=== PATIENT | male | born 1950 | race Caucasian/White ===

== ENCOUNTER 2017-08-06 00:43 | Inpatient (IN) | payer OTHER, MEDICARE ==
[~2017-08-06] VITALS: Ht 182.9 cm; Wt 70.7 kg
[~2017-08-06 00:43] MED LIST: CEPH500C5 PO; ESCI10TA PO
[2017-08-06] MEDS ORDERED: levoFLOXACIN-Levaquin 750MG/D5 150 ML IV ONE (01:40)
[2017-08-06] MEDS ORDERED: vancomycin/NS 1 GM ADD-VANTAGE 250 ML IV ONE (01:40)
[2017-08-06] MEDS ORDERED: normal saline 1000ML IV soln IV ONE (01:40)
[2017-08-06 02:31] LABS: BASOPHILS % (AUTO) 0.1 % (0-1); EOSINOPHILS # (AUTO) 0.2 X10'3 (0-0.9); HEMATOCRIT 33.6 % (42.0-52.0); HEMOGLOBIN 11.2 g/dl (14.0-17.9); LYMPHOCYTES # (AUTO) 0.7 X10'3 (1.1-4.8); LYMPHOCYTES % (AUTO) 6.6 % (21-51); MEAN CORPUSCULAR HEMOGLOBIN 32.6 PG (27.0-31.0); MEAN CORPUSCULAR HGB CONC 33.2 % (33.0-36.5); MEAN CORPUSCULAR VOLUME 98.2 FL (78-98); MEAN PLATELET VOLUME 9.2 FL (7.4-10.4); MONOCYTES # (AUTO) 0.7 X10'3 (0-0.9); MONOCYTES % (AUTO) 6.3 % (2-12); NEUTROPHILS # (AUTO) 8.9 X10'3 (1.8-7.7); PLATELET COUNT 136 X10'3 (140-440); RED BLOOD COUNT 3.42 X10'6 (4.70-6.10); RED CELL DISTRIBUTION WIDTH 16.9 % (11.5-14.5); WHITE BLOOD COUNT 10.4 X10'3 (4.5-11.0)
[2017-08-06 02:41] LABS: INR 1.1 INR; PARTIAL THROMBOPLASTIN TIME 26 SECONDS (22-32); PROTHROMBIN TIME 11.1 SECONDS (9.0-12.0)
[2017-08-06 02:46] LABS: ALANINE AMINOTRANSFERASE 13 U/L (12-78); ALBUMIN 2.8 G/DL (3.4-5.0); ALBUMIN/GLOBULIN RATIO 0.6 (1.1-1.5); ALKALINE PHOSPHATASE 87 IU/L (46-116); ANION GAP 8 (8-16); ASPARTATE AMINO TRANSFERASE 8 U/L (10-37); BILIRUBIN,TOTAL 0.7 MG/DL (0.1-1.0); BLOOD UREA NITROGEN 24 MG/DL (7-18); BUN/CREATININE RATIO 21.8 (5.4-32.0); CALCIUM 9.3 MG/DL (8.5-10.1); CHLORIDE 107 MMOL/L (99-107); GLUCOSE 106 MG/DL (70-104); POTASSIUM 4.3 MMOL/L (3.5-5.1); SODIUM 143 MMOL/L (135-145); TOTAL CARBON DIOXIDE 27.6 MMOL/L (24-32); TOTAL PROTEIN 7.2 G/DL (6.4-8.2); eGFR 67 ML/MIN
[2017-08-06 02:54] LABS: MAGNESIUM 2.1 MG/DL (1.5-2.4)
[2017-08-06] MEDS ORDERED: ATOR40TA PO (04:20)
[2017-08-06] MEDS ORDERED: DIGO125T PO (04:20)
[2017-08-06] MEDS ORDERED: FOLI0.4T2 PO (04:20)
[2017-08-06] MEDS ORDERED: CHOL400T32 PO (04:20)
[2017-08-06] MEDS ORDERED: POTA10TA10 PO (04:20)
[2017-08-06] MEDS ORDERED: MELO-100 PO (04:20)
[2017-08-06] MEDS ORDERED: COU1T PO (04:20)
[2017-08-06] MEDS ORDERED: ketorolac trometh. 30mg/ml inj. IV ONE (04:35)
[2017-08-06 04:52] LABS: CLARITY,URINE Clear (Clear); COLOR,URINE Yellow (Yellow); GLUCOSE, URINE Negative (Neg); KETONES,URINE Negative (Neg); LEUKOCYTE ESTERASE ,URINE Negative (Neg); NITRITES, URINE Negative (Neg); OCCULT BLOOD,URINE Negative (Neg); PROTEIN,URINE 30 mg/dl (Neg)
[2017-08-06 04:52] LABS: PLATELET ESTIMATE DECREASED; TOTAL CELLS COUNTED 100
[2017-08-06 04:53] LABS: ANISOCYTOSIS 1+
[2017-08-06 04:54] LABS: ELLIPTOCYTES 1+; POIKILOCYTOSIS FEW; SCHISTOCYTES FEW
[2017-08-06 04:56] LABS: UA COLLECTION TYPE CLN CATCH MIDSTREAM
[2017-08-06 05:04] LABS: URINE AMPHETAMINE SCREEN POSITIVE (Neg); URINE BARBITUATE SCREEN NEGATIVE (Neg); URINE BENZODIAZEPINES SCREEN NEGATIVE (Neg); URINE CANNABINOID SCREEN POSITIVE (Neg); URINE COCAINE SCREEN NEGATIVE (Neg); URINE METHADONE SCREEN NEGATIVE (Neg); URINE OPIATE SCREEN POSITIVE (Neg); URINE PHENCYCLIDINE SCREEN NEGATIVE (Neg)
[2017-08-06 05:08] LABS: RBC,URINE 0-2 /HPF (0-2); WBC,URINE 0-4 /HPF (0-4)
[2017-08-06 05:09] LABS: BACTERIA,URINE FEW /HPF (Neg); HYALINE CASTS 0-3 /LPF (NEGATIVE); MUCUS STRANDS FEW /LPF (Neg); SQUAMOUS EPITHELIAL CELL,UR FEW /LPF (FEW)
[2017-08-06] MEDS ORDERED: acetaminophen 325mg tablet PO PRN ×2 (05:15)
[2017-08-06] MEDS ORDERED: magnesium hydroxide 30ml (MOM) UD suspension PO PRN (05:15)
[2017-08-06] MEDS ORDERED: HYDROcodone/acetaminophen 5mg/325mg tablet PO PRN (05:15)
[2017-08-06] MEDS ORDERED: ondansetron/PF 4mg/2ml inj IV PRN (05:15)
[2017-08-06] MEDS ORDERED: mag hydrox/Alum hydrox/simeth 30ml oral suspension PO PRN (05:15)
[2017-08-06] MEDS ORDERED: metoclopramide 5 mg/ml inj IV PRN (05:15)
[2017-08-06] MEDS ORDERED: diphenhydrAMINE 25mg capsule PO PRN (05:15)
[2017-08-06] MEDS ORDERED: diphenhydrAMINE 50 mg/ml inj IV PRN (05:15)
[2017-08-06] MEDS ORDERED: HYDROmorphone 1 mg/ml syringe IV PRN ×2 (05:15)
[2017-08-06] MEDS ORDERED: acetaminophen 650mg rectal suppository RC PRN (05:15)
[2017-08-06] MEDS ORDERED: heparin 10,000 units/1 ML INJ IV ONE (05:50)
[2017-08-06] MEDS ORDERED: diltiazem 5mg/ml 5ml inj. IV ONE (05:50)
[2017-08-06] MEDS ORDERED: heparin 10,000 units/1 ML INJ IV PRN (05:50)
[2017-08-06] MEDS: normal saline 1000ml 1,000 ML IV SCH ×2 (06:18→17:25)
[2017-08-06 07:45] LABS: BASOPHILS % (AUTO) 0.1 % (0-1); EOSINOPHILS # (AUTO) 0.1 X10'3 (0-0.9); EOSINOPHILS % (AUTO) 1.5 % (0-6); HEMATOCRIT 28.3 % (42.0-52.0); HEMOGLOBIN 9.4 g/dl (14.0-17.9); LYMPHOCYTES # (AUTO) 0.8 X10'3 (1.1-4.8); LYMPHOCYTES % (AUTO) 9.3 % (21-51); MEAN CORPUSCULAR HEMOGLOBIN 32.6 PG (27.0-31.0); MEAN CORPUSCULAR HGB CONC 33.3 % (33.0-36.5); MEAN CORPUSCULAR VOLUME 97.9 FL (78-98); MONOCYTES # (AUTO) 0.4 X10'3 (0-0.9); MONOCYTES % (AUTO) 4.4 % (2-12); NEUTROPHILS % (AUTO) 84.7 % (42-75); PLATELET COUNT 104 X10'3 (140-440); RED BLOOD COUNT 2.89 X10'6 (4.70-6.10); WHITE BLOOD COUNT 8.2 X10'3 (4.5-11.0)
[2017-08-06 07:57] LABS: INR 1.1 INR; PARTIAL THROMBOPLASTIN TIME 29 SECONDS (22-32); PROTHROMBIN TIME 11.7 SECONDS (9.0-12.0)
[2017-08-06] MEDS ORDERED: methylPREDNISolone sod succ 125mg/2ml vial IV SCH (08:00)
[2017-08-06 08:03] LABS: PHOSPHORUS 3.4 MG/DL (2.3-4.5)
[2017-08-06] MEDS: pantoprazole 40mg Tablet.DR PO SCH (08:18)
[2017-08-06] MEDS: levoFLOXACIN-Levaquin 750MG/D5 150 ML IV SCH (08:18)
[2017-08-06] MEDS: atorvastatin 20mg tablet PO SCH (08:18)
[2017-08-06] MEDS: digoxin 125mcg (0.125mg) tablet PO SCH (08:19)
[2017-08-06] MEDS: docusate sod 100mg capsule PO SCH ×2 (08:19→20:23)
[2017-08-06] MEDS: nicotine 21mg patch - 24 hr TD SCH (08:24)
[2017-08-06 09:35] VITALS: BP 101/62
[2017-08-06] MEDS: HYDROcodone/acetaminophen 10/325mg tab PO PRN ×3 (11:42→20:25)
[2017-08-06 12:00] VITALS: BP 116/73
[2017-08-06] MEDS ORDERED: methylPREDNISolone sod succ 125mg/2ml vial IV ONE (13:00)
[2017-08-06] MEDS: lactobacillus rhamnosus 10,000 MMU CELLS/CAPSULE PO SCH (17:23)
[2017-08-06 19:30] VITALS: BP 107/83
[2017-08-06] MEDS: enoxaparin 30mg/0.3ml syringe SUBCUT SCH (20:26)
[2017-08-06] MEDS: enoxaparin 40mg/0.4ml syringe SUBCUT SCH (20:26)
[2017-08-06] MEDS ORDERED: temazepam 15mg capsule PO PRN (21:00)
[2017-08-06] MEDS ORDERED: warfarin 4mg tablet PO ONE (21:00)
[2017-08-07] VITALS: BP 100/67
[2017-08-07] MEDS: normal saline 1000ml 1,000 ML IV SCH ×3 (02:49→14:57)
[2017-08-07 05:52] LABS: BASOPHILS % (AUTO) 0.3 % (0-1); EOSINOPHILS % (AUTO) 0 % (0-6); HEMATOCRIT 32.8 % (42.0-52.0); HEMOGLOBIN 10.9 g/dl (14.0-17.9); LYMPHOCYTES # (AUTO) 0.6 X10'3 (1.1-4.8); LYMPHOCYTES % (AUTO) 5.9 % (21-51); MEAN CORPUSCULAR HEMOGLOBIN 32.5 PG (27.0-31.0); MEAN CORPUSCULAR HGB CONC 33.1 % (33.0-36.5); MEAN CORPUSCULAR VOLUME 98.2 FL (78-98); MEAN PLATELET VOLUME 9.4 FL (7.4-10.4); MONOCYTES # (AUTO) 0.4 X10'3 (0-0.9); MONOCYTES % (AUTO) 3.6 % (2-12); NEUTROPHILS # (AUTO) 9.6 X10'3 (1.8-7.7); NEUTROPHILS % (AUTO) 90.2 % (42-75); PLATELET COUNT 103 X10'3 (140-440); RED BLOOD COUNT 3.34 X10'6 (4.70-6.10); RED CELL DISTRIBUTION WIDTH 16.9 % (11.5-14.5); WHITE BLOOD COUNT 10.6 X10'3 (4.5-11.0)
[2017-08-07 06:06] LABS: INR 1.1 INR; PROTHROMBIN TIME 11.5 SECONDS (9.0-12.0)
[2017-08-07 06:12] LABS: ALANINE AMINOTRANSFERASE 13 U/L (12-78); ALBUMIN 2.1 G/DL (3.4-5.0); ALBUMIN/GLOBULIN RATIO 0.5 (1.1-1.5); ALKALINE PHOSPHATASE 78 IU/L (46-116); ANION GAP 4 (8-16); ASPARTATE AMINO TRANSFERASE 13 U/L (10-37); BILIRUBIN,TOTAL 0.4 MG/DL (0.1-1.0); BLOOD UREA NITROGEN 23 MG/DL (7-18); BUN/CREATININE RATIO 27.7 (5.4-32.0); CALCIUM 8.9 MG/DL (8.5-10.1); CHLORIDE 109 MMOL/L (99-107); CREATININE 0.83 MG/DL (0.60-1.10); GLUCOSE 148 MG/DL (70-104); POTASSIUM 4.4 MMOL/L (3.5-5.1); SODIUM 140 MMOL/L (135-145); TOTAL CARBON DIOXIDE 26.7 MMOL/L (24-32); TOTAL PROTEIN 6.3 G/DL (6.4-8.2); eGFR > 90 ML/MIN
[2017-08-07] MEDS: pantoprazole 40mg Tablet.DR PO SCH (09:22)
[2017-08-07] MEDS: levoFLOXACIN-Levaquin 750MG/D5 150 ML IV SCH (09:22)
[2017-08-07] MEDS: lactobacillus rhamnosus 10,000 MMU CELLS/CAPSULE PO SCH ×2 (09:22→17:34)
[2017-08-07] MEDS: docusate sod 100mg capsule PO SCH ×2 (09:23→19:59)
[2017-08-07] MEDS: atorvastatin 20mg tablet PO SCH (09:25)
[2017-08-07] MEDS: digoxin 125mcg (0.125mg) tablet PO SCH (09:25)
[2017-08-07] MEDS: enoxaparin 40mg/0.4ml syringe SUBCUT SCH ×2 (09:26→19:57)
[2017-08-07] MEDS: enoxaparin 30mg/0.3ml syringe SUBCUT SCH ×2 (09:26→19:57)
[2017-08-07] MEDS: nicotine 21mg patch - 24 hr TD SCH (09:37)
[2017-08-07 12:00] VITALS: BP 107/71
[2017-08-07 13:10] VITALS: BP 129/62
[2017-08-07] MEDS ORDERED: diltiazem 30mg tablet PO ONE ×2 (17:55→20:20)
[2017-08-07] MEDS ORDERED: cefTRIAXone 1g/NS 100ml IVPB 100 ML IV ONE (18:50)
[2017-08-07 19:30] VITALS: BP 149/72
[2017-08-07] MEDS: HYDROcodone/acetaminophen 10/325mg tab PO PRN (19:58)
[2017-08-07] MEDS ORDERED: warfarin 5mg tablet PO ONE (21:00)
[2017-08-08] VITALS: BP 96/48
[2017-08-08] MEDS: normal saline 1000ml 1,000 ML IV SCH ×2 (00:56→18:03)
[2017-08-08] MEDS: HYDROcodone/acetaminophen 10/325mg tab PO PRN ×4 (04:33→21:48)
[2017-08-08 05:02] LABS: BASOPHILS % (AUTO) 0.2 % (0-1); EOSINOPHILS # (AUTO) 0.1 X10'3 (0-0.9); EOSINOPHILS % (AUTO) 0.6 % (0-6); HEMATOCRIT 34.3 % (42.0-52.0); HEMOGLOBIN 11.2 g/dl (14.0-17.9); LYMPHOCYTES # (AUTO) 1.3 X10'3 (1.1-4.8); LYMPHOCYTES % (AUTO) 10.5 % (21-51); MEAN CORPUSCULAR HEMOGLOBIN 32.5 PG (27.0-31.0); MEAN CORPUSCULAR HGB CONC 32.7 % (33.0-36.5); MEAN CORPUSCULAR VOLUME 99.4 FL (78-98); MEAN PLATELET VOLUME 10.1 FL (7.4-10.4); MONOCYTES # (AUTO) 0.6 X10'3 (0-0.9); MONOCYTES % (AUTO) 4.9 % (2-12); NEUTROPHILS # (AUTO) 10.3 X10'3 (1.8-7.7); NEUTROPHILS % (AUTO) 83.8 % (42-75); PLATELET COUNT 131 X10'3 (140-440); RED BLOOD COUNT 3.45 X10'6 (4.70-6.10); WHITE BLOOD COUNT 12.3 X10'3 (4.5-11.0)
[2017-08-08 05:10] LABS: INR 1.3 INR; PROTHROMBIN TIME 13.5 SECONDS (9.0-12.0)
[2017-08-08 05:34] LABS: ALANINE AMINOTRANSFERASE 16 U/L (12-78); ALBUMIN 2.2 G/DL (3.4-5.0); ALBUMIN/GLOBULIN RATIO 0.5 (1.1-1.5); ALKALINE PHOSPHATASE 79 IU/L (46-116); ANION GAP 9 (8-16); ASPARTATE AMINO TRANSFERASE 17 U/L (10-37); BILIRUBIN,TOTAL 0.4 MG/DL (0.1-1.0); BLOOD UREA NITROGEN 20 MG/DL (7-18); CALCIUM 8.8 MG/DL (8.5-10.1); CHLORIDE 107 MMOL/L (99-107); GLUCOSE 107 MG/DL (70-104); POTASSIUM 4.7 MMOL/L (3.5-5.1); SODIUM 138 MMOL/L (135-145); TOTAL CARBON DIOXIDE 22.4 MMOL/L (24-32); TOTAL PROTEIN 6.4 G/DL (6.4-8.2); eGFR > 90 ML/MIN
[2017-08-08 07:00] VITALS: BP 113/61
[2017-08-08] MEDS: lactobacillus rhamnosus 10,000 MMU CELLS/CAPSULE PO SCH ×2 (08:33→17:21)
[2017-08-08] MEDS: pantoprazole 40mg Tablet.DR PO SCH (08:33)
[2017-08-08] MEDS: digoxin 125mcg (0.125mg) tablet PO SCH (08:34)
[2017-08-08] MEDS: levoFLOXACIN-Levaquin 750MG/D5 150 ML IV SCH (08:35)
[2017-08-08] MEDS: nicotine 21mg patch - 24 hr TD SCH (08:35)
[2017-08-08] MEDS: atorvastatin 20mg tablet PO SCH (08:35)
[2017-08-08] MEDS: enoxaparin 30mg/0.3ml syringe SUBCUT SCH (08:37)
[2017-08-08] MEDS: enoxaparin 40mg/0.4ml syringe SUBCUT SCH (08:38)
[2017-08-08] MEDS: docusate sod 100mg capsule PO SCH ×2 (08:38→20:07)
[2017-08-08] MEDS ORDERED: albuterol 2.5 MG/3 ML nebule NEB PRN (10:10)
[2017-08-08 12:41] VITALS: BP 111/62
[2017-08-08 19:47] VITALS: BP 116/66
[2017-08-08] MEDS: dabigatran 150mg capsule PO SCH (20:06)
[2017-08-08] MEDS ORDERED: warfarin 4mg tablet PO ONE (21:00)
[2017-08-09] VITALS: BP 96/56
[2017-08-09] MEDS: HYDROcodone/acetaminophen 10/325mg tab PO PRN ×3 (02:36→13:07)
[2017-08-09 06:12] LABS: BASOPHILS % (AUTO) 0.3 % (0-1); EOSINOPHILS # (AUTO) 0.1 X10'3 (0-0.9); EOSINOPHILS % (AUTO) 0.9 % (0-6); HEMOGLOBIN 11.7 g/dl (14.0-17.9); INR 2.2 INR; LYMPHOCYTES % (AUTO) 9.1 % (21-51); MEAN CORPUSCULAR HEMOGLOBIN 32.4 PG (27.0-31.0); MEAN CORPUSCULAR HGB CONC 33.3 % (33.0-36.5); MEAN CORPUSCULAR VOLUME 97.4 FL (78-98); MEAN PLATELET VOLUME 9.9 FL (7.4-10.4); MONOCYTES # (AUTO) 0.6 X10'3 (0-0.9); MONOCYTES % (AUTO) 5.7 % (2-12); NEUTROPHILS # (AUTO) 9.3 X10'3 (1.8-7.7); PLATELET COUNT 124 X10'3 (140-440); PROTHROMBIN TIME 21.8 SECONDS (9.0-12.0)
[2017-08-09 07:00] VITALS: BP 97/58
[2017-08-09 07:05] LABS: ACANTHOCYTES 1+; ANISOCYTOSIS 1+; ELLIPTOCYTES 2+; PLATELET ESTIMATE DECREASED; SCHISTOCYTES FEW
[2017-08-09 07:07] LABS: ALANINE AMINOTRANSFERASE 19 U/L (12-78); ALBUMIN 2.4 G/DL (3.4-5.0); ALBUMIN/GLOBULIN RATIO 0.5 (1.1-1.5); ALKALINE PHOSPHATASE 81 IU/L (46-116); ANION GAP 6 (8-16); ASPARTATE AMINO TRANSFERASE 19 U/L (10-37); BILIRUBIN,TOTAL 0.6 MG/DL (0.1-1.0); BLOOD UREA NITROGEN 17 MG/DL (7-18); BUN/CREATININE RATIO 17.9 (5.4-32.0); CALCIUM 9.2 MG/DL (8.5-10.1); CHLORIDE 105 MMOL/L (99-107); CREATININE 0.95 MG/DL (0.60-1.10); GLUCOSE 104 MG/DL (70-104); POTASSIUM 4.7 MMOL/L (3.5-5.1); SODIUM 139 MMOL/L (135-145); TOTAL CARBON DIOXIDE 28.5 MMOL/L (24-32); TOTAL PROTEIN 6.9 G/DL (6.4-8.2); eGFR 79 ML/MIN
[2017-08-09] MEDS ORDERED: fluticasone furoate 100MCG/puff inhaler IH SCH (08:00)
[2017-08-09] MEDS: atorvastatin 20mg tablet PO SCH (08:18)
[2017-08-09] MEDS: dabigatran 150mg capsule PO SCH (08:18)
[2017-08-09] MEDS: pantoprazole 40mg Tablet.DR PO SCH (08:19)
[2017-08-09] MEDS: docusate sod 100mg capsule PO SCH (08:19)
[2017-08-09] MEDS: digoxin 125mcg (0.125mg) tablet PO SCH (08:19)
[2017-08-09] MEDS: lactobacillus rhamnosus 10,000 MMU CELLS/CAPSULE PO SCH (08:19)
[2017-08-09] MEDS: nicotine 21mg patch - 24 hr TD SCH (08:19)
[2017-08-09] MEDS ORDERED: levoFLOXACIN 750MG TABLET PO SCH (11:00)
[2017-08-09] MEDS ORDERED: DABI150C PO (13:29)
[2017-08-09] MEDS ORDERED: NICO-687 TD (13:29)
[2017-08-09] MEDS ORDERED: LEVO750T46 PO (13:29)
== END 2017-08-09 15:15 | disposition home or self-care (01) | DRG 871 ==
LOC: ER 00:44 → ED HOLD 05:13 → MED 3N 09:55
PROVIDERS: ADMIT Family Medicine; ATTEND Family Medicine
DX: A41.9 Sepsis, unspecified organism (principal); J18.1 Lobar pneumonia, unspecified organism; I50.23 Acute on chronic systolic (congestive) heart failure; D69.6 Thrombocytopenia, unspecified; I48.2 Chronic atrial fibrillation; I11.0 Hypertensive heart disease with heart failure; E86.1 Hypovolemia; J44.0 Chronic obstructive pulmonary disease with (acute) lower respiratory infection; J44.1 Chronic obstructive pulmonary disease with (acute) exacerbation; Z79.01 Long term (current) use of anticoagulants; D64.9 Anemia, unspecified; E78.00 Pure hypercholesterolemia, unspecified; I25.10 Atherosclerotic heart disease of native coronary artery without angina pectoris; E78.5 Hyperlipidemia, unspecified; G89.29 Other chronic pain; R09.02 Hypoxemia; R79.1 Abnormal coagulation profile; M54.9 Dorsalgia, unspecified; F10.20 Alcohol dependence, uncomplicated; F15.10 Other stimulant abuse, uncomplicated; F11.10 Opioid abuse, uncomplicated; Z66 Do not resuscitate; Z91.19 Patient's noncompliance with other medical treatment and regimen; Z91.81 History of falling; Z95.1 Presence of aortocoronary bypass graft; Z86.73 Personal history of transient ischemic attack (TIA), and cerebral infarction without residual deficits
CPT/HCPCS: 36415; 70544; 70551; 71010; 80053; 80162; 80305; 81001; 83605; 83735; 83880; 84100; 84145; 84484; 85025; 85610; 85730; 87040; 87070; 94640; 94760; 96365; 96368; 96375; 99291; J1650; J1885; J1956; J2270; J2930; J3370; J7030

== ENCOUNTER 2017-08-30 00:20 | Inpatient (IN) | payer OTHER, MEDICARE ==
[~2017-08-30] VITALS: Ht 188 cm; Wt 76.1 kg
[~2017-08-30 00:20] MED LIST changes: +ATOR40TA PO; -CEPH500C5 PO; +CHOL400T32 PO; +DABI150C PO; +DIGO125T PO; -ESCI10TA PO; +FOLI0.4T2 PO; +LEVO750T46 PO; +NICO-687 TD; +POTA10TA10 PO
[2017-08-30] MEDS ORDERED: vancomycin/NS 1 GM ADD-VANTAGE 250 ML IV ONE (01:00)
[2017-08-30] MEDS ORDERED: normal saline 1000ML IV soln IV ONE (01:00)
[2017-08-30] MEDS ORDERED: levoFLOXACIN-Levaquin 750MG/D5 150 ML IV ONE (01:00)
[2017-08-30] MEDS ORDERED: LIDOcaine 1.5% w/epinephrine 1:200,000 5ml ampul IJ ONE (01:00)
[2017-08-30 02:13] LABS: BASOPHILS % (AUTO) 0.1 % (0-1); EOSINOPHILS % (AUTO) 0 % (0-6); HEMATOCRIT 29.8 % (42.0-52.0); HEMOGLOBIN 9.7 g/dl (14.0-17.9); LYMPHOCYTES # (AUTO) 0.5 X10'3 (1.1-4.8); LYMPHOCYTES % (AUTO) 4.2 % (21-51); MEAN CORPUSCULAR HEMOGLOBIN 31.6 PG (27.0-31.0); MEAN CORPUSCULAR HGB CONC 32.7 % (33.0-36.5); MEAN CORPUSCULAR VOLUME 96.6 FL (78-98); MEAN PLATELET VOLUME 9.7 FL (7.4-10.4); MONOCYTES # (AUTO) 0.4 X10'3 (0-0.9); MONOCYTES % (AUTO) 3.8 % (2-12); NEUTROPHILS % (AUTO) 91.9 % (42-75); PLATELET COUNT 104 X10'3 (140-440); RED BLOOD COUNT 3.08 X10'6 (4.70-6.10); RED CELL DISTRIBUTION WIDTH 18.3 % (11.5-14.5); WHITE BLOOD COUNT 10.8 X10'3 (4.5-11.0)
[2017-08-30 02:23] LABS: INR 1.2 INR; PARTIAL THROMBOPLASTIN TIME 29 SECONDS (22-32); PROTHROMBIN TIME 12.7 SECONDS (9.0-12.0)
[2017-08-30 02:34] LABS: ALANINE AMINOTRANSFERASE 20 U/L (12-78); ALBUMIN/GLOBULIN RATIO 0.4 (1.1-1.5); ALKALINE PHOSPHATASE 104 IU/L (46-116); ANION GAP 9 (8-16); ASPARTATE AMINO TRANSFERASE 19 U/L (10-37); BILIRUBIN,TOTAL 0.4 MG/DL (0.1-1.0); BLOOD UREA NITROGEN 24 MG/DL (7-18); BUN/CREATININE RATIO 17.1 (5.4-32.0); CALCIUM 7.9 MG/DL (8.5-10.1); CHLORIDE 109 MMOL/L (99-107); GLUCOSE 95 MG/DL (70-104); POTASSIUM 3.9 MMOL/L (3.5-5.1); SODIUM 145 MMOL/L (135-145); TOTAL CARBON DIOXIDE 27.5 MMOL/L (24-32); TOTAL PROTEIN 6.9 G/DL (6.4-8.2); eGFR 51 ML/MIN
[2017-08-30] MEDS: normal saline 1000ml 1,000 ML IV SCH ×2 (03:18→08:44)
[2017-08-30] MEDS ORDERED: acetaminophen 325mg tablet PO PRN ×2 (03:20→03:30)
[2017-08-30] MEDS ORDERED: ondansetron/PF 4mg/2ml inj IV PRN ×2 (03:20→03:30)
[2017-08-30] MEDS ORDERED: HYDROmorphone 1 mg/ml syringe IV PRN ×3 (03:20→12:40)
[2017-08-30] MEDS ORDERED: mag hydrox/Alum hydrox/simeth 30ml oral suspension PO PRN ×2 (03:20→03:30)
[2017-08-30] MEDS ORDERED: magnesium hydroxide 30ml (MOM) UD suspension PO PRN ×2 (03:20→03:30)
[2017-08-30] MEDS ORDERED: normal saline 1000ml 1,000 ML IV SCH (03:26)
[2017-08-30 04:50] VITALS: BP 105/61
[2017-08-30 04:54] LABS: ANISOCYTOSIS 2+; PLATELET ESTIMATE DECREASED
[2017-08-30 04:55] LABS: ELLIPTOCYTES 1+; SCHISTOCYTES 1+
[2017-08-30] MEDS ORDERED: HYDROmorphone inj. 0.5 MG/0.5 ML DISP.SYRIN ONE ×5 (05:13→22:49)
[2017-08-30 07:30] VITALS: BP 124/75
[2017-08-30] MEDS ORDERED: heparin, porcine 5000 units/ml vial SQ SCH ×2 (08:00)
[2017-08-30] MEDS ORDERED: DABI150C PO (09:41)
[2017-08-30] MEDS ORDERED: NICO-687 TOP (09:42)
[2017-08-30 11:30] VITALS: BP 97/59
[2017-08-30] MEDS ORDERED: LORazepam 2 mg/ml vial IV PRN (12:55)
[2017-08-30 14:25] VITALS: BP 109/62
[2017-08-30] MEDS ORDERED: LIDOcaine 1%/PF (10mg/ml) 5ml vial ONE (14:29)
[2017-08-30 14:36] VITALS: BP 99/53
[2017-08-30] MEDS: vancomycin/NS 1 GM ADD-VANTAGE 250 ML IV SCH (16:01)
[2017-08-30] MEDS: HYDROcodone/acetaminophen 10/325mg tab PO PRN ×2 (17:18→21:33)
[2017-08-30] MEDS: lactobacillus rhamnosus 10,000 MMU CELLS/CAPSULE PO SCH (18:05)
[2017-08-30] MEDS: folic acid inj. 2 MG, thiamine inj. 100 MG, MVI, adult No.4 with vit. K 10 ML in dextro... IV SCH ×4 (18:06)
[2017-08-30 18:15] LABS: TOTAL PROTEIN,BODY FLUID 4.1 G/DL
[2017-08-30 18:41] LABS: BFAPPEAR TURBID; GLUCOSE,BODY FLUID < 5 MG/DL
[2017-08-30 18:42] LABS: LDH,BODY FLUID 7964 U/L
[2017-08-30 18:43] LABS: BFCOLOR YELLOW; BFVOLUME 18 ML
[2017-08-30 18:46] LABS: BF RBC COUNT 9500 /CU MM; BF WBC COUNT 1340000 /CU MM (0-1000)
[2017-08-30 18:48] LABS: EOSINOPHILS,BODY FLUID 1 %; LYMPHOCYTES,BODY FLUID 2 %; MONOCYTES,BODY FLUID 4 %; NEUTROPHILS,BODY FLUID 93 %
[2017-08-30 20:00] VITALS: BP 114/66
[2017-08-30] MEDS: dabigatran 150mg capsule PO SCH (20:46)
[2017-08-30] MEDS: LORazepam 1 MG tablet PO PRN (20:47)
[2017-08-30] MEDS ORDERED: levoFLOXACIN-Levaquin 750MG/D5 150 ML IV SCH (21:00)
[2017-08-31] VITALS: BP 122/76
[2017-08-31] MEDS: Potassium Cl inj 20 MEQ in normal saline 1000ml 1,000 ML IV SCH ×2 (02:03→16:55)
[2017-08-31] MEDS ORDERED: HYDROmorphone inj. 0.5 MG/0.5 ML DISP.SYRIN ONE (04:21)
[2017-08-31] MEDS: vancomycin/NS 1 GM ADD-VANTAGE 250 ML IV SCH ×2 (04:24→16:56)
[2017-08-31 06:02] LABS: BASOPHILS % (AUTO) 0.1 % (0-1); EOSINOPHILS # (AUTO) 0.1 X10'3 (0-0.9); EOSINOPHILS % (AUTO) 1.8 % (0-6); HEMATOCRIT 28.5 % (42.0-52.0); HEMOGLOBIN 9.5 g/dl (14.0-17.9); LYMPHOCYTES # (AUTO) 0.9 X10'3 (1.1-4.8); LYMPHOCYTES % (AUTO) 12.3 % (21-51); MEAN CORPUSCULAR HEMOGLOBIN 31.7 PG (27.0-31.0); MEAN CORPUSCULAR HGB CONC 33.3 % (33.0-36.5); MEAN CORPUSCULAR VOLUME 95.3 FL (78-98); MEAN PLATELET VOLUME 9.3 FL (7.4-10.4); MONOCYTES # (AUTO) 0.4 X10'3 (0-0.9); NEUTROPHILS # (AUTO) 5.9 X10'3 (1.8-7.7); NEUTROPHILS % (AUTO) 80.8 % (42-75); PLATELET COUNT 74 X10'3 (140-440); RED BLOOD COUNT 2.99 X10'6 (4.70-6.10); RED CELL DISTRIBUTION WIDTH 18.5 % (11.5-14.5); WHITE BLOOD COUNT 7.3 X10'3 (4.5-11.0)
[2017-08-31 06:28] LABS: PLATELET ESTIMATE DECREASED
[2017-08-31 06:29] LABS: ACANTHOCYTES FEW; ALANINE AMINOTRANSFERASE 17 U/L (12-78); ALBUMIN 1.6 G/DL (3.4-5.0); ALBUMIN/GLOBULIN RATIO 0.4 (1.1-1.5); ALKALINE PHOSPHATASE 91 IU/L (46-116); ANION GAP 5 (8-16); ANISOCYTOSIS 2+; ASPARTATE AMINO TRANSFERASE 15 U/L (10-37); BILIRUBIN,TOTAL 0.4 MG/DL (0.1-1.0); BLOOD UREA NITROGEN 21 MG/DL (7-18); BURR CELLS 1+; CALCIUM 7.9 MG/DL (8.5-10.1); CHLORIDE 108 MMOL/L (99-107); ELLIPTOCYTES 1+; GLUCOSE 77 MG/DL (70-104); MAGNESIUM 1.5 MG/DL (1.5-2.4); POTASSIUM 4.1 MMOL/L (3.5-5.1); SODIUM 140 MMOL/L (135-145); TOTAL CARBON DIOXIDE 27.2 MMOL/L (24-32); TOTAL PROTEIN 6.1 G/DL (6.4-8.2); eGFR 75 ML/MIN
[2017-08-31] MEDS ORDERED: non-formulary drug (Atorvastatin Calcium* (Lipitor*) 1 TAB) PO SCH (08:00)
[2017-08-31] MEDS ORDERED: folic acid 0.4mg tablet PO SCH (08:00)
[2017-08-31 08:19] VITALS: BP 112/75
[2017-08-31] MEDS: dabigatran 150mg capsule PO SCH ×2 (08:24→20:16)
[2017-08-31] MEDS: cholecalciferol (vitamin D) 400 unit tablet PO SCH (08:24)
[2017-08-31] MEDS: lactobacillus rhamnosus 10,000 MMU CELLS/CAPSULE PO SCH ×2 (08:27→16:56)
[2017-08-31] MEDS: atorvastatin 20mg tablet PO SCH (08:29)
[2017-08-31] MEDS: HYDROcodone/acetaminophen 10/325mg tab PO PRN ×3 (08:30→20:17)
[2017-08-31] MEDS: folic acid inj. 2 MG, thiamine inj. 100 MG, MVI, adult No.4 with vit. K 10 ML in dextro... IV SCH ×4 (08:30)
[2017-08-31] MEDS ORDERED: tPA-cathflo 2mg/2ml IV flush 10 MG in normal saline 100ml IV soln 40 ML ICATH SCH (11:10)
[2017-08-31] MEDS ORDERED: VANCOMYCIN LEVEL IV NR (14:30)
[2017-08-31] MEDS: metroNIDAZOLE-Flagyl 500mg/NS 100 ML IV SCH (19:18)
[2017-08-31 20:00] VITALS: BP 101/61
[2017-09-01] VITALS: BP 115/67
[2017-09-01] MEDS: morphine 2 MG/ML inj. syringe IV PRN ×4 (00:14→22:31)
[2017-09-01] MEDS: LORazepam 1 MG tablet PO PRN ×5 (01:16→23:35)
[2017-09-01] MEDS: HYDROcodone/acetaminophen 10/325mg tab PO PRN ×5 (01:16→23:35)
[2017-09-01] MEDS: metroNIDAZOLE-Flagyl 500mg/NS 100 ML IV SCH ×4 (01:20→23:41)
[2017-09-01 03:28] LABS: BASOPHILS % (AUTO) 0.1 % (0-1); EOSINOPHILS # (AUTO) 0.1 X10'3 (0-0.9); EOSINOPHILS % (AUTO) 1.9 % (0-6); HEMATOCRIT 26.9 % (42.0-52.0); HEMOGLOBIN 8.9 g/dl (14.0-17.9); LYMPHOCYTES # (AUTO) 0.6 X10'3 (1.1-4.8); LYMPHOCYTES % (AUTO) 9.4 % (21-51); MEAN CORPUSCULAR HEMOGLOBIN 31.3 PG (27.0-31.0); MEAN CORPUSCULAR HGB CONC 33.3 % (33.0-36.5); MEAN CORPUSCULAR VOLUME 93.8 FL (78-98); MEAN PLATELET VOLUME 8.5 FL (7.4-10.4); MONOCYTES # (AUTO) 0.3 X10'3 (0-0.9); NEUTROPHILS # (AUTO) 5.8 X10'3 (1.8-7.7); NEUTROPHILS % (AUTO) 83.6 % (42-75); PLATELET COUNT 95 X10'3 (140-440); RED BLOOD COUNT 2.86 X10'6 (4.70-6.10); RED CELL DISTRIBUTION WIDTH 18.4 % (11.5-14.5); WHITE BLOOD COUNT 6.9 X10'3 (4.5-11.0)
[2017-09-01 03:44] LABS: ALANINE AMINOTRANSFERASE 16 U/L (12-78); ALBUMIN 1.4 G/DL (3.4-5.0); ALBUMIN/GLOBULIN RATIO 0.3 (1.1-1.5); ALKALINE PHOSPHATASE 77 IU/L (46-116); ANION GAP 3 (8-16); ASPARTATE AMINO TRANSFERASE 13 U/L (10-37); BILIRUBIN,TOTAL 0.3 MG/DL (0.1-1.0); BLOOD UREA NITROGEN 18 MG/DL (7-18); BUN/CREATININE RATIO 22.5 (5.4-32.0); CALCIUM 7.3 MG/DL (8.5-10.1); CHLORIDE 110 MMOL/L (99-107); GLUCOSE 103 MG/DL (70-104); MAGNESIUM 1.4 MG/DL (1.5-2.4); PHOSPHORUS 1.6 MG/DL (2.3-4.5); POTASSIUM 4.7 MMOL/L (3.5-5.1); SODIUM 141 MMOL/L (135-145); TOTAL CARBON DIOXIDE 27.6 MMOL/L (24-32); TOTAL PROTEIN 5.7 G/DL (6.4-8.2); VANCOMYCIN,TROUGH 17.4 UG/ML (6.0-14.0); eGFR > 90 ML/MIN
[2017-09-01] MEDS: vancomycin/NS 1 GM ADD-VANTAGE 250 ML IV SCH ×2 (04:12→15:35)
[2017-09-01 07:00] VITALS: BP 140/64
[2017-09-01] MEDS: folic acid 1mg tablet PO SCH (07:23)
[2017-09-01] MEDS: dabigatran 150mg capsule PO SCH ×2 (07:23→19:49)
[2017-09-01] MEDS: thiamine 100mg tablet PO SCH (07:23)
[2017-09-01] MEDS: lactobacillus rhamnosus 10,000 MMU CELLS/CAPSULE PO SCH ×2 (07:23→17:23)
[2017-09-01] MEDS: atorvastatin 20mg tablet PO SCH (07:24)
[2017-09-01] MEDS: multivitamins, therapeutics tablet PO SCH (07:24)
[2017-09-01] MEDS: cholecalciferol (vitamin D) 400 unit tablet PO SCH (07:24)
[2017-09-01] MEDS: tPA-cathflo 2mg/2ml IV flush 5 MG in normal saline 100ml IV soln 50 ML ICATH SCH (08:00)
[2017-09-01 11:00] VITALS: BP 123/62
[2017-09-01] MEDS: levoFLOXACIN 750MG TABLET PO SCH (11:42)
[2017-09-01] MEDS: Potassium Cl inj 20 MEQ in normal saline 1000ml 1,000 ML IV SCH (12:50)
[2017-09-01] MEDS ORDERED: magnesium 4gm in 100ml NS 100 ML IV PRN (14:40)
[2017-09-01] MEDS ORDERED: potassium Cl 20 mEq SR tablet PO PRN ×2 (14:40)
[2017-09-01] MEDS ORDERED: potassium Cl 40MEQ/NS 500ml 500 ML IV PRN ×2 (14:40)
[2017-09-01] MEDS ORDERED: magnesium 2GM in 50ml NS 50 ML IV PRN (14:40)
[2017-09-01] MEDS: magnesium Cl slow-release 64mg tablet PO PRN ×2 (15:35→19:51)
[2017-09-01] MEDS ORDERED: sodium phosphate inj. 30 MMOL in dextrose 5%-water 240 ML IV ONE (16:05)
[2017-09-01] MEDS: LACTOSE-FREE FOOD 237ML (BOOST) PO SCH (17:52)
[2017-09-01 20:00] VITALS: BP 115/80
[2017-09-02] VITALS (9 sets, daily range): BP systolic 64–122; BP diastolic 38–64
[2017-09-02] MEDS: vancomycin/NS 1 GM ADD-VANTAGE 250 ML IV SCH ×2 (04:04→14:59)
[2017-09-02] MEDS: HYDROcodone/acetaminophen 10/325mg tab PO PRN ×3 (04:06→16:45)
[2017-09-02] MEDS: LORazepam 1 MG tablet PO PRN ×3 (04:06→11:00)
[2017-09-02 04:28] LABS: BASOPHILS % (AUTO) 0 % (0-1); EOSINOPHILS # (AUTO) 0.2 X10'3 (0-0.9); EOSINOPHILS % (AUTO) 1.5 % (0-6); HEMATOCRIT 28.3 % (42.0-52.0); HEMOGLOBIN 9.4 g/dl (14.0-17.9); LYMPHOCYTES # (AUTO) 0.8 X10'3 (1.1-4.8); LYMPHOCYTES % (AUTO) 7.5 % (21-51); MEAN CORPUSCULAR HEMOGLOBIN 31.5 PG (27.0-31.0); MEAN CORPUSCULAR HGB CONC 33.2 % (33.0-36.5); MEAN CORPUSCULAR VOLUME 94.7 FL (78-98); MEAN PLATELET VOLUME 9.7 FL (7.4-10.4); MONOCYTES # (AUTO) 0.4 X10'3 (0-0.9); MONOCYTES % (AUTO) 4.1 % (2-12); NEUTROPHILS # (AUTO) 8.7 X10'3 (1.8-7.7); NEUTROPHILS % (AUTO) 86.9 % (42-75); PLATELET COUNT 105 X10'3 (140-440); RED BLOOD COUNT 2.99 X10'6 (4.70-6.10); RED CELL DISTRIBUTION WIDTH 18.3 % (11.5-14.5)
[2017-09-02 04:43] LABS: ALANINE AMINOTRANSFERASE 12 U/L (12-78); ALBUMIN 1.3 G/DL (3.4-5.0); ALBUMIN/GLOBULIN RATIO 0.3 (1.1-1.5); ALKALINE PHOSPHATASE 63 IU/L (46-116); ANION GAP 3 (8-16); ASPARTATE AMINO TRANSFERASE 10 U/L (10-37); BILIRUBIN,TOTAL 0.4 MG/DL (0.1-1.0); BLOOD UREA NITROGEN 16 MG/DL (7-18); CHLORIDE 110 MMOL/L (99-107); GLUCOSE 129 MG/DL (70-104); MAGNESIUM 1.4 MG/DL (1.5-2.4); PHOSPHORUS 2.8 MG/DL (2.3-4.5); POTASSIUM 3.9 MMOL/L (3.5-5.1); SODIUM 142 MMOL/L (135-145); TOTAL CARBON DIOXIDE 28.9 MMOL/L (24-32); TOTAL PROTEIN 5.4 G/DL (6.4-8.2); eGFR > 90 ML/MIN
[2017-09-02] MEDS: magnesium Cl slow-release 64mg tablet PO PRN ×2 (07:47→17:09)
[2017-09-02] MEDS: dabigatran 150mg capsule PO SCH ×2 (07:47→20:44)
[2017-09-02] MEDS: multivitamins, therapeutics tablet PO SCH (07:47)
[2017-09-02] MEDS: folic acid 1mg tablet PO SCH (07:48)
[2017-09-02] MEDS: cholecalciferol (vitamin D) 400 unit tablet PO SCH (07:48)
[2017-09-02] MEDS: thiamine 100mg tablet PO SCH (07:48)
[2017-09-02] MEDS: atorvastatin 20mg tablet PO SCH (07:48)
[2017-09-02] MEDS: lactobacillus rhamnosus 10,000 MMU CELLS/CAPSULE PO SCH ×2 (07:48→16:45)
[2017-09-02] MEDS: metroNIDAZOLE-Flagyl 500mg/NS 100 ML IV SCH (07:49)
[2017-09-02] MEDS: Potassium Cl inj 20 MEQ in normal saline 1000ml 1,000 ML IV SCH (07:55)
[2017-09-02] MEDS: LACTOSE-FREE FOOD 237ML (BOOST) PO SCH ×3 (08:00→18:00)
[2017-09-02] MEDS: tPA-cathflo 2mg/2ml IV flush 5 MG in normal saline 100ml IV soln 50 ML ICATH SCH (08:00)
[2017-09-02] MEDS: levoFLOXACIN 750MG TABLET PO SCH (11:00)
[2017-09-02] MEDS: morphine 2 MG/ML inj. syringe IV PRN ×2 (11:01→23:49)
[2017-09-02] MEDS ORDERED: tPA-cathflo 2mg/2ml IV flush 5 MG in normal saline 100ml IV soln 50 ML ICATH SCH (12:00)
[2017-09-02] MEDS ORDERED: normal saline 1000ml 1,000 ML IV ONE ×3 (12:05→14:20)
[2017-09-02] MEDS: metroNIDAZOLE 500mg tablet PO SCH ×2 (16:44→23:39)
[2017-09-02] MEDS: CefTRIAXone/D5W-Rocephin 1gm 50 ML IV SCH (20:44)
[2017-09-02] MEDS: Potassium Cl inj 10 MEQ in normal saline 1000ml 1,000 ML IV SCH (20:44)
[2017-09-03] VITALS (7 sets, daily range): BP systolic 84–113; BP diastolic 46–68
[2017-09-03] MEDS: Potassium Cl inj 10 MEQ in normal saline 1000ml 1,000 ML IV SCH ×4 (00:52→21:46)
[2017-09-03] MEDS: HYDROcodone/acetaminophen 10/325mg tab PO PRN ×4 (04:12→21:47)
[2017-09-03] MEDS: vancomycin/NS 1 GM ADD-VANTAGE 250 ML IV SCH ×2 (04:12→15:15)
[2017-09-03 05:04] LABS: BASOPHILS % (AUTO) 0.2 % (0-1); EOSINOPHILS # (AUTO) 0.2 X10'3 (0-0.9); EOSINOPHILS % (AUTO) 1.8 % (0-6); HEMATOCRIT 30.5 % (42.0-52.0); LYMPHOCYTES # (AUTO) 0.9 X10'3 (1.1-4.8); LYMPHOCYTES % (AUTO) 8.5 % (21-51); MEAN CORPUSCULAR HEMOGLOBIN 31.5 PG (27.0-31.0); MEAN CORPUSCULAR HGB CONC 32.9 % (33.0-36.5); MEAN CORPUSCULAR VOLUME 95.6 FL (78-98); MEAN PLATELET VOLUME 9.9 FL (7.4-10.4); MONOCYTES # (AUTO) 0.5 X10'3 (0-0.9); MONOCYTES % (AUTO) 4.6 % (2-12); NEUTROPHILS # (AUTO) 9.4 X10'3 (1.8-7.7); NEUTROPHILS % (AUTO) 84.9 % (42-75); PLATELET COUNT 102 X10'3 (140-440); RED BLOOD COUNT 3.19 X10'6 (4.70-6.10)
[2017-09-03 05:50] LABS: ALANINE AMINOTRANSFERASE 6 U/L (12-78); ALBUMIN 1.5 G/DL (3.4-5.0); ALBUMIN/GLOBULIN RATIO 0.3 (1.1-1.5); ALKALINE PHOSPHATASE 68 IU/L (46-116); ANION GAP 6 (8-16); ASPARTATE AMINO TRANSFERASE 12 U/L (10-37); BILIRUBIN,TOTAL 0.4 MG/DL (0.1-1.0); BLOOD UREA NITROGEN 17 MG/DL (7-18); BUN/CREATININE RATIO 28.3 (5.4-32.0); CALCIUM 7.6 MG/DL (8.5-10.1); CHLORIDE 111 MMOL/L (99-107); GLUCOSE 96 MG/DL (70-104); MAGNESIUM 1.3 MG/DL (1.5-2.4); PHOSPHORUS 2.2 MG/DL (2.3-4.5); POTASSIUM 4.1 MMOL/L (3.5-5.1); SODIUM 144 MMOL/L (135-145); TOTAL CARBON DIOXIDE 27.5 MMOL/L (24-32); TOTAL PROTEIN 5.9 G/DL (6.4-8.2); eGFR > 90 ML/MIN
[2017-09-03] MEDS: thiamine 100mg tablet PO SCH (07:45)
[2017-09-03] MEDS: multivitamins, therapeutics tablet PO SCH (07:47)
[2017-09-03] MEDS: cholecalciferol (vitamin D) 400 unit tablet PO SCH (07:48)
[2017-09-03] MEDS: lactobacillus rhamnosus 10,000 MMU CELLS/CAPSULE PO SCH ×2 (07:48→17:21)
[2017-09-03] MEDS: atorvastatin 20mg tablet PO SCH (07:48)
[2017-09-03] MEDS: CefTRIAXone/D5W-Rocephin 1gm 50 ML IV SCH (07:49)
[2017-09-03] MEDS: metroNIDAZOLE 500mg tablet PO SCH ×3 (07:49→23:51)
[2017-09-03] MEDS: folic acid 1mg tablet PO SCH (07:49)
[2017-09-03] MEDS: magnesium Cl slow-release 64mg tablet PO PRN ×2 (07:49→20:08)
[2017-09-03] MEDS: dabigatran 150mg capsule PO SCH ×2 (07:50→20:08)
[2017-09-03] MEDS: LACTOSE-FREE FOOD 237ML (BOOST) PO SCH ×3 (08:20→18:00)
[2017-09-03] MEDS: morphine 2 MG/ML inj. syringe IV PRN ×4 (11:26→23:51)
[2017-09-03] MEDS ORDERED: sodium phosphate inj. 15 MMOL in dextrose 5%-water 145 ML IV ONE (13:45)
[2017-09-04] VITALS (14 sets, daily range): BP systolic 90–121; BP diastolic 47–86
[2017-09-04] MEDS: HYDROcodone/acetaminophen 10/325mg tab PO PRN ×5 (01:50→21:26)
[2017-09-04] MEDS: vancomycin/NS 1 GM ADD-VANTAGE 250 ML IV SCH ×2 (02:35→14:34)
[2017-09-04] MEDS: morphine 2 MG/ML inj. syringe IV PRN ×5 (03:52→23:33)
[2017-09-04 05:52] LABS: ALANINE AMINOTRANSFERASE 13 U/L (12-78); ALBUMIN 1.1 G/DL (3.4-5.0); ALBUMIN/GLOBULIN RATIO 0.3 (1.1-1.5); ALKALINE PHOSPHATASE 82 IU/L (46-116); ANION GAP 3 (8-16); ASPARTATE AMINO TRANSFERASE 15 U/L (10-37); BILIRUBIN,TOTAL 0.3 MG/DL (0.1-1.0); BLOOD UREA NITROGEN 20 MG/DL (7-18); CHLORIDE 111 MMOL/L (99-107); GLUCOSE 107 MG/DL (70-104); MAGNESIUM 1.3 MG/DL (1.5-2.4); POTASSIUM 4.2 MMOL/L (3.5-5.1); SODIUM 143 MMOL/L (135-145); TOTAL CARBON DIOXIDE 29.2 MMOL/L (24-32); eGFR > 90 ML/MIN
[2017-09-04 07:24] LABS: BASOPHILS % (AUTO) 0.2 % (0-1); EOSINOPHILS # (AUTO) 0.1 X10'3 (0-0.9); EOSINOPHILS % (AUTO) 1.7 % (0-6); HEMATOCRIT 26.2 % (42.0-52.0); HEMOGLOBIN 8.9 g/dl (14.0-17.9); LYMPHOCYTES % (AUTO) 15.5 % (21-51); MEAN CORPUSCULAR HEMOGLOBIN 31.9 PG (27.0-31.0); MEAN CORPUSCULAR HGB CONC 34.1 % (33.0-36.5); MEAN CORPUSCULAR VOLUME 93.6 FL (78-98); MONOCYTES # (AUTO) 0.3 X10'3 (0-0.9); MONOCYTES % (AUTO) 5.1 % (2-12); NEUTROPHILS # (AUTO) 4.9 X10'3 (1.8-7.7); NEUTROPHILS % (AUTO) 77.5 % (42-75); PLATELET COUNT 102 X10'3 (140-440); WHITE BLOOD COUNT 6.4 X10'3 (4.5-11.0)
[2017-09-04] MEDS: LACTOSE-FREE FOOD 237ML (BOOST) PO SCH ×3 (08:00→18:00)
[2017-09-04] MEDS ORDERED: diltiazem CD 120mg capsule (once-daily) PO SCH (08:00)
[2017-09-04] MEDS: magnesium Cl slow-release 64mg tablet PO PRN (08:02)
[2017-09-04] MEDS: cholecalciferol (vitamin D) 400 unit tablet PO SCH (08:03)
[2017-09-04] MEDS: dabigatran 150mg capsule PO SCH ×2 (08:03→19:24)
[2017-09-04] MEDS: metroNIDAZOLE 500mg tablet PO SCH ×3 (08:03→23:33)
[2017-09-04] MEDS: thiamine 100mg tablet PO SCH (08:03)
[2017-09-04] MEDS: atorvastatin 20mg tablet PO SCH (08:03)
[2017-09-04] MEDS: lactobacillus rhamnosus 10,000 MMU CELLS/CAPSULE PO SCH ×2 (08:03→16:55)
[2017-09-04] MEDS: multivitamins, therapeutics tablet PO SCH (08:04)
[2017-09-04] MEDS: folic acid 1mg tablet PO SCH (08:05)
[2017-09-04] MEDS: CefTRIAXone/D5W-Rocephin 1gm 50 ML IV SCH (08:07)
[2017-09-04] MEDS: Potassium Cl inj 10 MEQ in normal saline 1000ml 1,000 ML IV SCH ×2 (08:16→16:57)
[2017-09-04] MEDS ORDERED: sodium phosphate inj. 30 MMOL in dextrose 5%-water 240 ML IV STA (08:26)
[2017-09-04 14:15] LABS: MAGNESIUM 1.2 MG/DL (1.5-2.4); PHOSPHORUS 3.1 MG/DL (2.3-4.5)
[2017-09-04] MEDS ORDERED: potassium Cl 40MEQ/NS 500ml 500 ML IV PRN ×2 (16:30)
[2017-09-04] MEDS ORDERED: potassium Cl 20 mEq SR tablet PO PRN ×2 (16:30)
[2017-09-04] MEDS ORDERED: magnesium Cl slow-release 64mg tablet PO PRN (16:30)
[2017-09-04] MEDS ORDERED: magnesium 2GM in 50ml NS 50 ML IV PRN (16:30)
[2017-09-04] MEDS ORDERED: magnesium 4gm in 100ml NS 100 ML IV PRN (16:30)
[2017-09-04] MEDS ORDERED: amiodarone 150mg/dext, iso-os 100 ML IV ONE (17:45)
[2017-09-04] MEDS: Neutra Phos packet PO SCH (19:24)
[2017-09-04] MEDS: amiodarone/D5 360MG/200ML BAG 200 ML IV PRN (19:30)
[2017-09-04] MEDS ORDERED: metoprolol tartrate 12.5mg (1/2 tablet) PO SCH (20:00)
[2017-09-05] VITALS (10 sets, daily range): BP systolic 97–120; BP diastolic 38–83
[2017-09-05] MEDS: amiodarone/D5 360MG/200ML BAG 200 ML IV PRN (00:57)
[2017-09-05] MEDS: HYDROcodone/acetaminophen 10/325mg tab PO PRN ×4 (01:45→20:33)
[2017-09-05] MEDS: vancomycin/NS 1 GM ADD-VANTAGE 250 ML IV SCH ×2 (02:57→14:55)
[2017-09-05] MEDS: Potassium Cl inj 10 MEQ in normal saline 1000ml 1,000 ML IV SCH ×3 (03:11→18:31)
[2017-09-05] MEDS: morphine 2 MG/ML inj. syringe IV PRN ×5 (03:35→23:22)
[2017-09-05 06:15] LABS: BASOPHILS % (AUTO) 0.1 % (0-1); EOSINOPHILS # (AUTO) 0.1 X10'3 (0-0.9); EOSINOPHILS % (AUTO) 1.4 % (0-6); LYMPHOCYTES % (AUTO) 12.4 % (21-51); MEAN CORPUSCULAR HEMOGLOBIN 31.6 PG (27.0-31.0); MEAN CORPUSCULAR HGB CONC 33.2 % (33.0-36.5); MEAN CORPUSCULAR VOLUME 95.3 FL (78-98); MEAN PLATELET VOLUME 9.2 FL (7.4-10.4); MONOCYTES # (AUTO) 0.5 X10'3 (0-0.9); NEUTROPHILS # (AUTO) 6.2 X10'3 (1.8-7.7); NEUTROPHILS % (AUTO) 80.1 % (42-75); PLATELET COUNT 76 X10'3 (140-440); RED BLOOD COUNT 2.84 X10'6 (4.70-6.10); RED CELL DISTRIBUTION WIDTH 18.8 % (11.5-14.5); WHITE BLOOD COUNT 7.8 X10'3 (4.5-11.0)
[2017-09-05 06:37] LABS: ALANINE AMINOTRANSFERASE 17 U/L (12-78); ALBUMIN 1.3 G/DL (3.4-5.0); ALBUMIN/GLOBULIN RATIO 0.3 (1.1-1.5); ALKALINE PHOSPHATASE 65 IU/L (46-116); ANION GAP 4 (8-16); ASPARTATE AMINO TRANSFERASE 19 U/L (10-37); BILIRUBIN,TOTAL 0.4 MG/DL (0.1-1.0); BLOOD UREA NITROGEN 19 MG/DL (7-18); BUN/CREATININE RATIO 23.8 (5.4-32.0); CALCIUM 7.3 MG/DL (8.5-10.1); CHLORIDE 110 MMOL/L (99-107); GLUCOSE 103 MG/DL (70-104); POTASSIUM 4.5 MMOL/L (3.5-5.1); SODIUM 143 MMOL/L (135-145); TOTAL CARBON DIOXIDE 28.8 MMOL/L (24-32); TOTAL PROTEIN 5.7 G/DL (6.4-8.2); eGFR > 90 ML/MIN
[2017-09-05 06:53] LABS: PLATELET ESTIMATE DECREASED
[2017-09-05 06:55] LABS: LARGE PLATELETS FEW
[2017-09-05 06:58] LABS: POIKILOCYTOSIS FEW
[2017-09-05 06:59] LABS: ANISOCYTOSIS 2+
[2017-09-05 07:00] LABS: ACANTHOCYTES FEW; ELLIPTOCYTES FEW; MICROCYTOSIS 1+
[2017-09-05 07:01] LABS: SCHISTOCYTES FEW
[2017-09-05] MEDS: LACTOSE-FREE FOOD 237ML (BOOST) PO SCH ×3 (08:00→18:00)
[2017-09-05] MEDS: atorvastatin 20mg tablet PO SCH (08:22)
[2017-09-05] MEDS: thiamine 100mg tablet PO SCH (08:23)
[2017-09-05] MEDS: multivitamins, therapeutics tablet PO SCH (08:23)
[2017-09-05] MEDS: metroNIDAZOLE 500mg tablet PO SCH ×3 (08:23→23:21)
[2017-09-05] MEDS: dabigatran 150mg capsule PO SCH ×2 (08:24→20:32)
[2017-09-05] MEDS: folic acid 1mg tablet PO SCH (08:24)
[2017-09-05] MEDS: Neutra Phos packet PO SCH (08:24)
[2017-09-05] MEDS: cholecalciferol (vitamin D) 400 unit tablet PO SCH (08:24)
[2017-09-05] MEDS: CefTRIAXone/D5W-Rocephin 1gm 50 ML IV SCH (08:25)
[2017-09-05] MEDS: lactobacillus rhamnosus 10,000 MMU CELLS/CAPSULE PO SCH ×2 (08:25→17:39)
[2017-09-05] MEDS ORDERED: metoprolol succinate 25mg (24-HOUR) SR. Tablet PO SCH (09:05)
[2017-09-05] MEDS: amiodarone 200mg tablet PO SCH ×2 (09:26→20:32)
[2017-09-05 09:40] LABS: MAGNESIUM 1.9 MG/DL (1.5-2.4); PHOSPHORUS 3.1 MG/DL (2.3-4.5)
[2017-09-06] MEDS: HYDROcodone/acetaminophen 10/325mg tab PO PRN ×6 (00:36→21:12)
[2017-09-06 03:00] VITALS: BP 102/73
[2017-09-06] MEDS: morphine 2 MG/ML inj. syringe IV PRN (03:33)
[2017-09-06] MEDS: vancomycin/NS 1 GM ADD-VANTAGE 250 ML IV SCH ×3 (03:34→18:55)
[2017-09-06 06:00] VITALS: BP 90/48
[2017-09-06 06:49] LABS: BASOPHILS % (AUTO) 0.2 % (0-1); EOSINOPHILS # (AUTO) 0.1 X10'3 (0-0.9); EOSINOPHILS % (AUTO) 1.5 % (0-6); HEMATOCRIT 26.5 % (42.0-52.0); HEMOGLOBIN 9.1 g/dl (14.0-17.9); LYMPHOCYTES # (AUTO) 0.9 X10'3 (1.1-4.8); LYMPHOCYTES % (AUTO) 13.9 % (21-51); MEAN CORPUSCULAR HEMOGLOBIN 31.9 PG (27.0-31.0); MEAN CORPUSCULAR HGB CONC 34.1 % (33.0-36.5); MEAN CORPUSCULAR VOLUME 93.5 FL (78-98); MEAN PLATELET VOLUME 9.7 FL (7.4-10.4); MONOCYTES # (AUTO) 0.3 X10'3 (0-0.9); NEUTROPHILS % (AUTO) 79.4 % (42-75); PLATELET COUNT 114 X10'3 (140-440); RED BLOOD COUNT 2.84 X10'6 (4.70-6.10); RED CELL DISTRIBUTION WIDTH 18.5 % (11.5-14.5); WHITE BLOOD COUNT 6.4 X10'3 (4.5-11.0)
[2017-09-06 07:39] LABS: ALANINE AMINOTRANSFERASE 15 U/L (12-78); ALBUMIN 1.3 G/DL (3.4-5.0); ALBUMIN/GLOBULIN RATIO 0.3 (1.1-1.5); ALKALINE PHOSPHATASE 60 IU/L (46-116); ANION GAP 3 (8-16); ASPARTATE AMINO TRANSFERASE 20 U/L (10-37); BILIRUBIN,TOTAL 0.4 MG/DL (0.1-1.0); BLOOD UREA NITROGEN 19 MG/DL (7-18); BUN/CREATININE RATIO 21.1 (5.4-32.0); CALCIUM 7.6 MG/DL (8.5-10.1); CHLORIDE 110 MMOL/L (99-107); GLUCOSE 100 MG/DL (70-104); POTASSIUM 4.8 MMOL/L (3.5-5.1); SODIUM 140 MMOL/L (135-145); TOTAL CARBON DIOXIDE 27.4 MMOL/L (24-32); TOTAL PROTEIN 5.8 G/DL (6.4-8.2); eGFR 84 ML/MIN
[2017-09-06] MEDS: amiodarone 200mg tablet PO SCH ×2 (07:55→19:23)
[2017-09-06] MEDS: cholecalciferol (vitamin D) 400 unit tablet PO SCH (07:55)
[2017-09-06] MEDS: thiamine 100mg tablet PO SCH (07:55)
[2017-09-06] MEDS: atorvastatin 20mg tablet PO SCH (07:55)
[2017-09-06] MEDS: lactobacillus rhamnosus 10,000 MMU CELLS/CAPSULE PO SCH ×2 (07:55→16:44)
[2017-09-06] MEDS: multivitamins, therapeutics tablet PO SCH (07:55)
[2017-09-06] MEDS: metroNIDAZOLE 500mg tablet PO SCH ×2 (07:55→16:44)
[2017-09-06] MEDS: CefTRIAXone/D5W-Rocephin 1gm 50 ML IV SCH (07:56)
[2017-09-06] MEDS: folic acid 1mg tablet PO SCH (07:56)
[2017-09-06] MEDS: LACTOSE-FREE FOOD 237ML (BOOST) PO SCH ×3 (07:56→18:00)
[2017-09-06] MEDS: morphine 5 MG/ML injection IV PRN ×3 (09:45→18:54)
[2017-09-06 11:00] VITALS: BP 98/53
[2017-09-06] MEDS: dabigatran 150mg capsule PO SCH ×2 (12:13→19:23)
[2017-09-06] MEDS: Potassium Cl inj 10 MEQ in normal saline 1000ml 1,000 ML IV SCH ×2 (12:15→18:55)
[2017-09-06 15:00] VITALS: BP 93/43
[2017-09-06 18:30] VITALS: BP 102/38
[2017-09-06 23:00] VITALS: BP 111/66
[2017-09-07] MEDS: metroNIDAZOLE 500mg tablet PO SCH ×3 (00:54→16:18)
[2017-09-07] MEDS: HYDROcodone/acetaminophen 10/325mg tab PO PRN ×5 (01:13→17:31)
[2017-09-07 03:00] VITALS: BP 97/47
[2017-09-07] MEDS: Potassium Cl inj 10 MEQ in normal saline 1000ml 1,000 ML IV SCH (05:17)
[2017-09-07 06:30] VITALS: BP 103/53
[2017-09-07 07:12] LABS: BASOPHILS % (AUTO) 0.3 % (0-1); EOSINOPHILS # (AUTO) 0.1 X10'3 (0-0.9); EOSINOPHILS % (AUTO) 1.3 % (0-6); HEMATOCRIT 25.1 % (42.0-52.0); HEMOGLOBIN 8.7 g/dl (14.0-17.9); LYMPHOCYTES # (AUTO) 1.1 X10'3 (1.1-4.8); LYMPHOCYTES % (AUTO) 15.7 % (21-51); MEAN CORPUSCULAR HEMOGLOBIN 32.2 PG (27.0-31.0); MEAN CORPUSCULAR HGB CONC 34.7 % (33.0-36.5); MEAN CORPUSCULAR VOLUME 93.1 FL (78-98); MEAN PLATELET VOLUME 9.6 FL (7.4-10.4); MONOCYTES # (AUTO) 0.4 X10'3 (0-0.9); MONOCYTES % (AUTO) 5.4 % (2-12); NEUTROPHILS # (AUTO) 5.5 X10'3 (1.8-7.7); NEUTROPHILS % (AUTO) 77.3 % (42-75); PLATELET COUNT 114 X10'3 (140-440); RED CELL DISTRIBUTION WIDTH 18.3 % (11.5-14.5); WHITE BLOOD COUNT 7.1 X10'3 (4.5-11.0)
[2017-09-07] MEDS: lactobacillus rhamnosus 10,000 MMU CELLS/CAPSULE PO SCH ×2 (07:27→17:31)
[2017-09-07] MEDS: CefTRIAXone/D5W-Rocephin 1gm 50 ML IV SCH (07:27)
[2017-09-07] MEDS: multivitamins, therapeutics tablet PO SCH (07:27)
[2017-09-07] MEDS: thiamine 100mg tablet PO SCH (07:28)
[2017-09-07] MEDS: folic acid 1mg tablet PO SCH (07:28)
[2017-09-07] MEDS: amiodarone 200mg tablet PO SCH ×2 (07:28→19:18)
[2017-09-07] MEDS: atorvastatin 20mg tablet PO SCH (07:28)
[2017-09-07] MEDS: cholecalciferol (vitamin D) 400 unit tablet PO SCH (07:28)
[2017-09-07 07:30] LABS: ALANINE AMINOTRANSFERASE 16 U/L (12-78); ALBUMIN 1.3 G/DL (3.4-5.0); ALBUMIN/GLOBULIN RATIO 0.3 (1.1-1.5); ALKALINE PHOSPHATASE 60 IU/L (46-116); ANION GAP 3 (8-16); ASPARTATE AMINO TRANSFERASE 18 U/L (10-37); BILIRUBIN,TOTAL 0.4 MG/DL (0.1-1.0); BLOOD UREA NITROGEN 19 MG/DL (7-18); BUN/CREATININE RATIO 23.8 (5.4-32.0); CALCIUM 7.5 MG/DL (8.5-10.1); CHLORIDE 110 MMOL/L (99-107); GLUCOSE 99 MG/DL (70-104); POTASSIUM 4.6 MMOL/L (3.5-5.1); SODIUM 141 MMOL/L (135-145); TOTAL CARBON DIOXIDE 28.1 MMOL/L (24-32); TOTAL PROTEIN 5.7 G/DL (6.4-8.2); eGFR > 90 ML/MIN
[2017-09-07] MEDS: LACTOSE-FREE FOOD 237ML (BOOST) PO SCH ×3 (08:00→18:00)
[2017-09-07] MEDS: vancomycin/NS 1 GM ADD-VANTAGE 250 ML IV SCH ×2 (08:22→19:18)
[2017-09-07 08:32] LABS: MAGNESIUM 1.8 MG/DL (1.5-2.4)
[2017-09-07] MEDS: dabigatran 150mg capsule PO SCH ×2 (09:25→19:18)
[2017-09-07 11:00] VITALS: BP 111/55
[2017-09-07] MEDS ORDERED: HYDR-569 PO (12:22)
[2017-09-07 15:00] VITALS: BP 102/46
[2017-09-07 19:00] VITALS: BP 110/51
[2017-09-07 23:00] VITALS: BP 119/40
[2017-09-07] MEDS ORDERED: naloxone 0.4 mg/ml inj IV PRN (23:05)
[2017-09-08] MEDS: metroNIDAZOLE 500mg tablet PO SCH ×2 (00:25→07:54)
[2017-09-08 03:00] VITALS: BP 120/53
[2017-09-08 06:00] VITALS: BP 104/44
[2017-09-08 06:49] LABS: BASOPHILS % (AUTO) 0.1 % (0-1); EOSINOPHILS # (AUTO) 0.1 X10'3 (0-0.9); EOSINOPHILS % (AUTO) 1.4 % (0-6); HEMATOCRIT 26.4 % (42.0-52.0); HEMOGLOBIN 8.8 g/dl (14.0-17.9); LYMPHOCYTES # (AUTO) 0.9 X10'3 (1.1-4.8); LYMPHOCYTES % (AUTO) 11.4 % (21-51); MEAN CORPUSCULAR HEMOGLOBIN 31.3 PG (27.0-31.0); MEAN CORPUSCULAR HGB CONC 33.1 % (33.0-36.5); MEAN CORPUSCULAR VOLUME 94.7 FL (78-98); MEAN PLATELET VOLUME 9.1 FL (7.4-10.4); MONOCYTES # (AUTO) 0.4 X10'3 (0-0.9); MONOCYTES % (AUTO) 4.5 % (2-12); NEUTROPHILS # (AUTO) 6.8 X10'3 (1.8-7.7); NEUTROPHILS % (AUTO) 82.6 % (42-75); PLATELET COUNT 129 X10'3 (140-440); RED BLOOD COUNT 2.79 X10'6 (4.70-6.10); WHITE BLOOD COUNT 8.2 X10'3 (4.5-11.0)
[2017-09-08] MEDS: vancomycin/NS 1 GM ADD-VANTAGE 250 ML IV SCH (07:00)
[2017-09-08 07:14] LABS: ALANINE AMINOTRANSFERASE 13 U/L (12-78); ALBUMIN 1.5 G/DL (3.4-5.0); ALBUMIN/GLOBULIN RATIO 0.3 (1.1-1.5); ALKALINE PHOSPHATASE 65 IU/L (46-116); ANION GAP 4 (8-16); ASPARTATE AMINO TRANSFERASE 16 U/L (10-37); BILIRUBIN,TOTAL 0.4 MG/DL (0.1-1.0); BLOOD UREA NITROGEN 18 MG/DL (7-18); CALCIUM 7.7 MG/DL (8.5-10.1); CHLORIDE 109 MMOL/L (99-107); GLUCOSE 102 MG/DL (70-104); POTASSIUM 4.4 MMOL/L (3.5-5.1); SODIUM 142 MMOL/L (135-145); TOTAL CARBON DIOXIDE 29.4 MMOL/L (24-32); eGFR 84 ML/MIN
[2017-09-08 07:20] LABS: ANISOCYTOSIS 2+; ELLIPTOCYTES 1+; PLATELET ESTIMATE DECREASED
[2017-09-08 07:21] LABS: ACANTHOCYTES FEW; SCHISTOCYTES FEW
[2017-09-08] MEDS: thiamine 100mg tablet PO SCH (07:53)
[2017-09-08] MEDS: amiodarone 200mg tablet PO SCH (07:53)
[2017-09-08] MEDS: lactobacillus rhamnosus 10,000 MMU CELLS/CAPSULE PO SCH (07:53)
[2017-09-08] MEDS: CefTRIAXone/D5W-Rocephin 1gm 50 ML IV SCH (07:54)
[2017-09-08] MEDS: multivitamins, therapeutics tablet PO SCH (07:54)
[2017-09-08] MEDS: atorvastatin 20mg tablet PO SCH (07:54)
[2017-09-08] MEDS: folic acid 1mg tablet PO SCH (07:54)
[2017-09-08] MEDS: cholecalciferol (vitamin D) 400 unit tablet PO SCH (07:54)
[2017-09-08] MEDS: dabigatran 150mg capsule PO SCH (08:00)
[2017-09-08] MEDS: LACTOSE-FREE FOOD 237ML (BOOST) PO SCH (08:04)
[2017-09-08] MEDS: HYDROcodone/acetaminophen 10/325mg tab PO PRN ×2 (08:08→12:09)
[2017-09-08 11:00] VITALS: BP 108/61
== END 2017-09-08 13:00 | disposition home or self-care (01) | DRG 871 ==
LOC: ER 00:22 → ED HOLD 03:18 → MED 3N 04:21 → PCU 3S 09-02 17:30
PROVIDERS: ADMIT Internal Medicine; ATTEND Internal Medicine
PROC: 0W9930Z Drainage of Right Pleural Cavity with Drainage Device, Percutaneous Approach (ICD-10-PCS; principal; 2017-08-30)
PROC: 0J9F3ZZ Drainage of Left Upper Arm Subcutaneous Tissue and Fascia, Percutaneous Approach (ICD-10-PCS; 2017-08-30)
PROC: 3E04317 Introduction of Other Thrombolytic into Central Vein, Percutaneous Approach (ICD-10-PCS; 2017-08-30)
DX: A41.9 Sepsis, unspecified organism (principal); J86.9 Pyothorax without fistula; E43 Unspecified severe protein-calorie malnutrition; I47.2 Ventricular tachycardia; J18.9 Pneumonia, unspecified organism; D69.59 Other secondary thrombocytopenia; J90 Pleural effusion, not elsewhere classified; E83.39 Other disorders of phosphorus metabolism; L03.114 Cellulitis of left upper limb; L02.414 Cutaneous abscess of left upper limb; I50.20 Unspecified systolic (congestive) heart failure; F11.23 Opioid dependence with withdrawal; F15.20 Other stimulant dependence, uncomplicated; I48.91 Unspecified atrial fibrillation; I11.0 Hypertensive heart disease with heart failure; D64.9 Anemia, unspecified; B95.4 Other streptococcus as the cause of diseases classified elsewhere; E83.42 Hypomagnesemia; I34.0 Nonrheumatic mitral (valve) insufficiency; I37.1 Nonrheumatic pulmonary valve insufficiency; G89.29 Other chronic pain; M54.9 Dorsalgia, unspecified; E78.00 Pure hypercholesterolemia, unspecified; E78.5 Hyperlipidemia, unspecified; I25.10 Atherosclerotic heart disease of native coronary artery without angina pectoris; I35.0 Nonrheumatic aortic (valve) stenosis; F10.10 Alcohol abuse, uncomplicated; Z72.0 Tobacco use; Z91.14 Patient's other noncompliance with medication regimen; Z95.1 Presence of aortocoronary bypass graft; Z79.899 Other long term (current) drug therapy; Z79.01 Long term (current) use of anticoagulants; Z86.73 Personal history of transient ischemic attack (TIA), and cerebral infarction without residual deficits; Z71.51 Drug abuse counseling and surveillance of drug abuser; Z68.21 Body mass index [BMI] 21.0-21.9, adult
CPT/HCPCS: 10060; 32555; 32557; 36415; 71045; 71250; 80053; 80162; 80202; 82945; 82948; 83605; 83615; 83735; 84100; 84145; 84157; 84484; 85025; 85610; 85730; 87040; 87070; 87075; 87077; 87186; 88108; 88305; 88341; 88342; 89051; 93005; 93306; 96365; 97110; 97116; 97161; 97530; 99291; A6212; A6213; A6223; A6257; A6266; A6449; J0282; J0696; J1170; J1644; J1956; J2001; J2060; J2270; J2310; J2997; J3370; J3411; J3475; J3480; J3490; J7030; J7060